=== PATIENT | male | born 1980 | race Caucasian/White ===

== ENCOUNTER 2019-10-03 14:00 | Outpatient (CLI) | payer OTHER, SELFPAY ==
[2019-10-05 16:40] LABS: COVID-19 RT-PCR Result Not Detected
== END 2019-10-03 14:20 ==
PROVIDERS: PCP Internal Medicine; Visit Provider Student in an Organized Health Care Education/Training Program
DX: Z20.828 Contact with and (suspected) exposure to other viral communicable diseases (principal); Z11.59 Encounter for screening for other viral diseases
CPT/HCPCS: 87449; U0003